=== PATIENT | male | born 1985 | race Caucasian/White ===

== ENCOUNTER 2022-08-12 19:29 | Emergency (ER) | payer SELFPAY ==
--- NOTE | ~2022-08-12 | CT_ITS ---
EXAMINATION: CT abdomen pelvis w con INDICATION: Abdominal pain TECHNIQUE: Computed tomographic images of the abdomen and pelvis were obtained after the administrati on of 100 cc of Omnipaque 350 intravenous contrast. The dose-length product (DLP) was 338.19 mGy-cm. Automated exposure control and iterative reconstruction technique were employed. COMPARISON: None available FINDINGS: The lung bases are clear. The heart size is normal. Punctate calcifications in an otherwise normal spleen likely represent healed granulomatous disease. There is wall thickening in the gastric antrum. The liver, pancreas, gallbladder, and adrenal glands are normal. The kidneys are unremarkabl e. No pathologically enlarged abdominal or pelvic lymph nodes are identified. No free intraperitoneal gas or evidence of bowel obstruction. A fat-containing umbilical hernia is noted. IMPRESSION: 1. Wall thickening of the gastric antrum which could reflect gastritis or possibly peptic ulcer disea se. 2. Constipation. Reviewed, dictated and finalized at location F. IMPRESSION: 1. Wall thickening of the gastric antrum which could reflect gastritis or possi janell peptic ulcer disease. 2. Constipation.
[2022-08-12 19:32] VITALS: BP 112/90; PULSE 75; RESP 18; TEMP 36.9; O2SAT 98
--- NOTE | 2022-08-12 19:46 | ED.GENADULT ---
HPI - General Adult General Chief complaint: Nausea/Vomiting/Diarrhea Stated complaint: Nausea/vomiting Time Seen by Provider: 08/12/22 19:42 Source: RN notes reviewed History of Present Illness HPI narrative: Patient presents emergency room from home for nausea vomiting. Patient states that he has been having nausea and vomiting for the past 24 hours. States is associate with abdominal pain in the right lower quadrant does not radiate. Abdominal pain is described as aching in nature. Denies having any diarrhea. He denies having any fevers or chills chest pain or shortness of breath. States he has not taken anything at home for the symptoms. Related Data Allergies Allergy/AdvReac Type Severity Reaction Status Date / Time No Known Allergies Allergy Verified 08/12/22 19:29 Review of Systems Review of Systems: Gen.: Denies fevers or chills ENT: Denies congestion Respiratory: Denies shortness of breath or cough CV: Denies chest pain or palpitations GI: See HPI denies burning, urgency, frequency or hematuria Musculoskeletal: Denies back pain or muscle pain Neuro: Denies numbness, tingling, weakness or focal weakness Skin: Denies rash Except as documented, all other systems reviewed and negative FORMERLY [facility], [facility] Past Medical History Medical History (Updated 08/12/22 @ 21:15 by Jn Cordova DO) Patient denies significant medical history Social History Social History (Updated 08/12/22 @ 19:46 by Jn Cordova DO) Tobacco type: e-cigarettes/vaping Exam Narrative: APPEARANCE: No acute distress, nontoxic, resting in bed HEENT: Normocephalic, atraumatic, OMM RESPIRATORY: No respiratory distress, clear to auscultation bilaterally with no rhonchi wheezing or rales CARDIOVASCULAR: RRR s murmur ABDOMINAL: Soft nondistended tender palpation right lower quadrant no tenderness in the right upper quadrant, left upper quadrant left lower quadrant no rebound or guarding MUSCULOSKELETAl: Moves all extremities. No clubbing, cyanosis or edema. NEURO: Awake and alert. Following commands, speech normal, no focal deficits SKIN:: Warm, dry. Normal Color PSYCHIATRIC: Normal affect/mood Course Course Emergency Course: Patient states he is feeling much better at this time. Patient able to drink in ED with no emesis feel exam exam soft nontender. Discussed with patient his CT results we discussed his gastritis and constipation we will give magnesium citrate for the patient to take tomorrow we will also place on Protonix outpatient follow-up with GI Vital Signs Vital signs: Vital Signs Temperature 98.4 F 08/12/22 19:32 Pulse Rate 75 08/12/22 19:32 Respiratory Rate 18 08/12/22 19:32 Blood Pressure 112/90 08/12/22 19:32 Pulse Oximetry 98 08/12/22 19:32 Oxygen Delivery Room Air 08/12/22 19:32 Temperature 98.4 F 08/12/22 19:32 Pulse Rate 75 08/12/22 19:32 Respiratory Rate 18 08/12/22 19:32 Blood Pressure 112/90 08/12/22 19:32 Pulse Oximetry 98 08/12/22 19:32 Oxygen Delivery Room Air 08/12/22 19:32 Medical Decision Making MDM Narrative Medical decision making narrative: Patient's abdomen is soft without significant pain or signs of surgical abdomen on serial exams. Lab and x-ray evaluations are reviewed and patient is felt to be a reasonable candidate for outpatient management. Patient was instructed as to limitations of x-ray and laboratory evaluation and encouraged to return to ED or primary physician for repeat exam in 12 hours if continued or worsening pain. Discussed CT results discussed gastritis will place on Protonix distress constipation we will give magnesium citrate to take tomorrow and I discussed this with the patient Vital Signs Vital Signs: Vital Signs Temperature 98.4 F 08/12/22 19:32 Pulse Rate 75 08/12/22 19:32 Respiratory Rate 18 08/12/22 19:32 Blood Pressure 112/90 08/12/22 19:32 Pulse Oximetry 98 08/12/22 19:32 Oxygen Delivery Room Air 07/16
[2022-08-12 19:55] LABS: Alanine Aminotransferase 19 U/L (6-50); Alkaline Phosphatase 69 U/L (38-126); Anion Gap 7 mmol/L (8-16); Aspartate Amino Transferase 28 U/L (17-59); Bilirubin,Total 0.7 mg/dL (0.2-1.3); Blood Urea Nitrogen 19 mg/dL (9-20); Calcium 9.5 mg/dL (8.4-10.2); Carbon Dioxide 37 mmol/L (22-30); Chloride 90 mmol/L (98-107); Estimated CRCL calculation 119 ml/min; Estimated Glomerular Filt Rate > 60; Glucose 125 mg/dL (65-110); Lipase 285 U/L (23-300); Potassium 3.4 mmol/L (3.4-5.0); Sodium 134 mmol/L (137-145)
[2022-08-12 19:56] LABS: Basophils Percent Auto 0.2 % (0.2-1.2); Eosinophils Percent Auto 0.1 % (0-4.4); Hematocrit 48.3 % (42.0-52.0); Immature Granulocyte Absolute 0.02 K/mm3 (0.00-0.031); Immature Granulocyte Percent A 0.2 % (0-0.5); Lymphocytes Percent Auto 11.1 % (18.3-44.2); Mean Corpuscular HGB Conc 33.1 g/dl (32-36); Mean Corpuscular Hemoglobin 29.4 pg (26-34); Mean Corpuscular Volume 88.6 fl (80-100); Mean Platelet Volume 10.8 fl (7.4-10.4); Monocytes Absolute Auto 0.5 K/mm3 (0.1-0.6); Monocytes Percent Auto 4.5 % (2.6-8.5); Neutrophils Absolute Auto 9.8 K/mm3 (1.3-6.7); Neutrophils Percent Auto 83.9 % (45.5-73.1); Platelet Count Result 254 k/mm3 (150-375); Red Blood Count 5.45 M/mm3 (4.6-6.20); Red Cell Distribution Width 13.1 % (11.5-14.5); White Blood Count 11.7 K/mm3 (4.5-10.0)
[2022-08-12 20:01] LABS: Appearance Urine Clear (Clear); Bacteria Urine None Seen /hpf; Bilirubin Urine 1+ (Negative); Blood Urine Negative (Negative); Color Urine Dark Yellow (Yellow); Glucose Urine UA Negative (Negative); Ketones Urine 3+ mg/dL (Negative); Leukocyte Esterase Ur Trace LEU/UL (Negative); Nitrate Urine Negative (Negative); Non Pathogenic Casts 0-2; Protein Urine 2+ mg/dL (Negative); RBC Urine 0-2 /hpf (0-2); Specific Grav Ur 1.033 (1.001-1.035); Squamous Epithelial Cell Urine None seen /hpf (Few); WBC Urine 0-5 /hpf; pH Urine 8.5 (5.0-9.0)
[2022-08-12 20:14] LABS: Add Urine Microscopic? YES
[2022-08-12] MEDS: ONDANSETRON INJ 4 MG/2 ML VIAL IV PUSH (20:23)
[2022-08-12] MEDS: SODIUM CHLORIDE 0.9% IV 1,000 ML 999 ML IV CONT ×2 (20:27→22:29)
[2022-08-12] MEDS: KETOROLAC 30 MG/ML VIAL (*BKC) IV PUSH (20:41)
[2022-08-12] MEDS: FAMOTIDINE 20 MG/2 ML VIAL IV PUSH (20:42)
[2022-08-12 22:27] VITALS: BP 100/59; PULSE 76; RESP 20; O2SAT 100
== END 2022-08-12 22:28 | disposition home or self-care (01) ==
PROVIDERS: Emergency Medicine; Emergency Provider Emergency Medicine
DX: R11.2 Nausea with vomiting, unspecified (principal); R10.31 Right lower quadrant pain; F17.290 Nicotine dependence, other tobacco product, uncomplicated; K59.00 Constipation, unspecified
CPT/HCPCS: 36415; 74177; 80053; 81001; 83690; 85025; 96360; 96361; 96374; 96375; 99284; J1885; J2405; J7030; Q9967